=== PATIENT | female | born 1985 | race Caucasian/White ===

== ENCOUNTER → 2019-07-25 | Outpatient (CLI) | payer BC, SELFPAY | PROVIDERS: Family Provider Family Medicine; Visit Provider Nurse Practitioner | DX: F43.12 Post-traumatic stress disorder, chronic (principal); F41.1 Generalized anxiety disorder; F33.1 Major depressive disorder, recurrent, moderate ==

== ENCOUNTER 2019-08-15 14:35 | Emergency (ER) | payer BC, OTHER, SELFPAY ==
[2019-08-15] VITALS (8 sets, daily range): BP systolic 113–134; BP diastolic 72–86; PULSE 61–79; RESP 16–18; TEMP 36.4; O2SAT 95–100; BMI 30.4
[2019-08-15 14:58] LABS: Basophils % 0.5 %; Eosinophils # 0.4 10^3/uL (0.0-0.8); Eosinophils % 4.6 %; Hematocrit 45.9 % (37.0-47.0); Hemoglobin 15.5 g/dL (11.5-15.3); Lymphocytes # 2.2 10^3/uL (0.8-4.8); Lymphocytes % 25.4 %; Mean Corpuscular HGB Conc 33.8 g/dL (30.0-36.0); Mean Corpuscular Hemoglobin 32.2 pg (28.0-34.0); Mean Corpuscular Volume 95.2 fL (81-99); Mean Platelet Volume 9.3 fL (7.4-10.4); Monocytes # 0.7 10^3/uL (0.2-0.9); Monocytes % 8.2 %; Neutrophils # 5.3 10^3/uL (1.8-7.7); Neutrophils % 61.1 %; Nucleated Red Blood Cells % 0 %; Platelet Count 299 10^3/cmm (130-400); Red Blood Count 4.82 10^6/uL (4.1-5.3); Red Cell Distribution Width 12.1 % (12.1-15.1); White Blood Count 8.6 10^3/uL (4.0-10.0)
[2019-08-15 15:13] LABS: Alanine Aminotransferase 10 U/L (0-33); Albumin Level 4.3 g/dL (3.5-5.2); Alkaline Phosphatase 77 IU/L (35-105); Anion Gap 15.8 (5-19); Aspartate Amino Transferase 15 U/L (0-32); Blood Urea Nitrogen 9 mg/dL (6-20); Calcium 10.1 mg/Dl (8.6-10.0); Carbon Dioxide 27 mmol/L (22-29); Chloride 102 mmol/L (98-107); Glomerular Filtration Rate 71.3 mL/min (90-130); Glucose 107 mg/dL (74-109); Lipase 41 U/L (13-60); Potassium 3.8 mmol/L (3.5-5.1); Sodium 141 mmol/L (136-145); Total Bilirubin 0.6 mg/dL (0.15-1.2); Total Protein 8.3 g/dL (6.6-8.7)
--- NOTE | 2019-08-15 15:14 | ED_ITS ---
Entered by Ash Tamez, acting as scribe for Arnav Sharma DO Aug 15, 2019 14:35 HPI - Abdominal Pain General: Chief Complaint: Abdominal Pain Stated Complaint: abd pain Time Seen by Provider: 08/15/19 15:19 History of Present Illness: HPI narrative: 34 yo female presents with RLQ pain. Pt states that she has had some pain when urinating. Pt denies fever and vomiting. Associated Symptoms: Reports diarrhea and dysuria; Denies chills, coffee ground emesis, constipation, GI cramping, fever(s), heartburn, hematochezia, hematemesis, melena, nausea, syncope and vomiting Review of Systems Const: Denies: fever, chills, body aches, fatigue, malaise or night sweats Eyes: Denies: change in vision or blurry vision ENMT: Denies: throat pain, oral sores/lesions, dental pain, nasal discharge or nasal congestion Card: Denies: chest pain, palpitations, irregular heart rhythm, edema, syncope, shortness of breath on exertion, shortness of breath when lying down or leg pain with exertion Resp: Reports: non-productive cough; Denies: shortness of breath, productive cough or wheezing GI: Reports: diarrhea; Denies: abdominal pain, nausea, vomiting, vomiting blood, coffee grounds in vomit, difficulty swallowing, heartburn/indigestion, constipation, cramping, blood in stool or black tarry stool : Reports: painful urination Musc: Denies: neck pain, back pain, extremity pain, extremity swelling, joint pain or joint swelling Skin/Breast: Denies: rash, itching or redness Neuro: Denies: headache, numbness in extremities, weakness in extremities, changes in sensation, lack of coordination, difficulty walking, frequent falls, dizziness, vertigo or confusion Psych: Denies: anxiety, depression, loss of interest, visual hallucinations, auditory hallucinations, suicidal ideation or homicidal ideation Endo: Denies: excessive urination, excessive thirst, tired all the time or cold intolerance Carlin/Lymph: Denies: easy bruising, easy bleeding, petechiae, enlarged lymph nodes or tender lymph nodes PFSH ED PFSH: Statuses (acute, chronic, etc) shown below reflect problem list status as previously entered and may not be historically accurate Surgical History H/O: hysterectomy (Acute) Hx of tubal ligation (Acute) Social History Smoking and tobacco status: former smoker Physical Exam Const: COMMON NORMALS: average body habitus, oriented x3 and alert GENERAL APPEARANCE: cooperative, comfortable, well kempt and well developed NUTRITIONAL APPEARANCE: not obese ORIENTATION/CONSCIOUSNESS: Yes awake, Yes oriented to person and Yes oriented to place HENMT: COMMON NORMALS: normocephalic, head/scalp atraumatic, EAC's normal, TM's normal bilaterally, external nose normal, moist oral mucous membranes and oropharynx normal HEAD & SCALP: normocephalic and atraumatic NOSE: external nose normal EXTERNAL AUDITORY CANAL: EAC's normal TYMPANIC MEMBRANE: TM's normal bilaterally MOUTH: oral and palatal mucosa normal, lip normal and tongue normal THROAT: posterior oropharynx normal and tonsils normal Eye: COMMON NORMALS: PERRL, EOMs intact bilaterally, conjunctivae normal and no scleral icterus CONJUNCTIVA: Yes conjunctivae normal PUPIL: Yes PERRL Neck/C-Spine: COMMON NORMALS: full ROM, no lymphadenopathy, supple, no meningeal signs and thyroid normal THYROID: thyroid normal and asymmetrical Lymph: LYMPHATIC: no lymphadenopathy noted Resp: COMMON NORMALS: normal respiratory effort, no retractions, no use of accessory muscles and clear to auscultation bilaterally AUSCULTATION: clear to auscultation bilaterally Cardio: COMMON NORMALS: regular rate and regular rhythm RATE: regular rate RHYTHM: regular rhythm HEART SOUNDS: no murmurs GI: COMMON NORMALS: normal to inspection, nondistended, normoactive bowel sounds, soft to palpation and no hepatosplenomegaly PALPATION: Yes soft, Yes tender Details: RLQ and Yes no hepatosplenomegaly : COMMON NORMALS: Yes no CVA tenderness BLADDER/KIDNEY EXAM: Yes no CVA tenderness Back/Pelvis: COMMON NORMALS: no CVA tenderness LUMBAR SPINE/LOWER BACK: Yes normal to inspection Extremity: COMMON NORMALS: no clubbing, cyanosis or edema, no calf tenderness and no pedal edema Neuro: COMMON NORMALS: oriented x3 SENSORIUM/ORIENTATION: Yes alert, Yes oriented to person and Yes oriented to place MENINGEAL SIGNS: Yes no meningeal signs Psych: APPEARANCE: Yes well kempt Skin: COMMON NORMALS: no rashes or lesions noted and skin turgor normal GENERAL SKIN EXAM: no rashes or lesions noted and turgor normal Course Vital Signs: Vital signs: Vital Signs Temperature 97.5 F L 08/15/19 14:38 Pulse Rate 68 08/15/19 19:28 Respiratory Rate 18 08/15/19 19:28 Blood Pressure 134/79 08/15/19 19:28 Pulse Oximetry 98 08/15/19 19:28 MDM - Abdominal Pain Lab Data: Labs: Lab Results 08/15/19 08/15/19 08/15/19 Range/Units 14:53 14:53 15:16 WBC 8.6 (4.0-10.0) 10^3/ uL RBC 4.82 (4.1-5.3) 10^6/u L Hgb 15.5 H (11.5-15.3) g/dL Hct 45.9 (37.0-47.0) % MCV 95.2 (81-99) fL MCH 32.2 (28.0-34.0) pg MCHC 33.8 (30.0-36.0) g/dL RDW 12.1 (12.1-15.1) % Plt Count 299 (130-400) 10^3/c mm MPV 9.3 (7.4-10.4) fL Neut % (Auto) 61.1 % Lymph % (Auto) 25.4 % Johnson % (Auto) 8.2 % Eos % (Auto) 4.6 % Baso % (Auto) 0.5 % Neut # (Auto) 5.3 (1.8-7.7) 10^3/u L Lymph # (Auto) 2.2 (0.8-4.8) 10^3/u L Johnson # (Auto) 0.7 (0.2-0.9) 10^3/u L Eos # (Auto) 0.4 (0.0-0.8) 10^3/u L Baso # (Auto) 0.0 (0.0-0.1) 10^3/u L Nucleated RBC % (a uto) 0 % Nucleated RBCs # 0.0 /100WBC Sodium 141 (136-145) mmol/L Potassium 3.8 (3.5-5.1) mmol/L Chloride 102 (98-107) mmol/L Carbon Dioxide 27 (22-29) mmol/L Anion Gap 15.8 (5-19) BUN 9 (6-20) mg/dL Creatinine 0.9 (0.5-0.9) mg/dL GFR Calculation 71.3 L (90-130) mL/min Glucose 107 (74-109) mg/dL Calcium 10.1 H (8.6-10.0) mg/Dl Total Bilirubin 0.6 (0.15-1.2) mg/dL AST 15 (0-32) U/L ALT 10 (0-33) U/L Alkaline Phosphata se 77 (35-105) IU/L Total Protein 8.3 (6.6-8.7) g/dL Albumin 4.3 (3.5-5.2) g/dL Globulin 4.0 (1.3-4.6) g/dL Lipase 41 (13-60) U/L HCG, Qual Negative (Negative) Urine Color (Yellow) Urine Appearance (CLEAR) Urine pH (5-7) Ur Specific Gravit y (1.005-1.030) Urine Protein (Negative) Urine Glucose (UA) (Normal) Urine Ketones (Negative) Urine Occult Blood (Negative) Urine Nitrate (Negative) Urine Bilirubin (NEGATIVE) Urine Urobilinogen (Negative) mg/dL Ur Leukocyte Gilda ase (Negative) 08/15/19 Range/Units 15:16 WBC (4.0-10.0) 10^3/ uL RBC (4.1-5.3) 10^6/u L Hgb (11.5-15.3) g/dL Hct (37.0-47.0) % MCV (81-99) fL MCH (28.0-34.0) pg MCHC (30.0-36.0) g/dL RDW (12.1-15.1) % Plt Count (130-400) 10^3/c mm MPV (7.4-10.4) fL Neut % (Auto) % Lymph % (Auto) % Johnson % (Auto) % Eos % (Auto) % Baso % (Auto) % Neut # (Auto) (1.8-7.7) 10^3/u L Lymph # (Auto) (0.8-4.8) 10^3/u L Johnson # (Auto) (0.2-0.9) 10^3/u L Eos # (Auto) (0.0-0.8) 10^3/u L Baso # (Auto) (0.0-0.1) 10^3/u L Nucleated RBC % (a uto) % Nucleated RBCs # /100WBC Sodium (136-145) mmol/L Potassium (3.5-5.1) mmol/L Chloride (98-107) mmol/L Carbon Dioxide (22-29) mmol/L Anion Gap (5-19) BUN (6-20) mg/dL Creatinine (0.5-0.9) mg/dL GFR Calculation (90-130) mL/min Glucose (74-109) mg/dL Calcium (8.6-10.0) mg/Dl Total Bilirubin (0.15-1.2) mg/dL AST (0-32) U/L ALT (0-33) U/L Alkaline Phosphata se (35-105) IU/L Total Protein (6.6-8.7) g/dL Albumin (3.5-5.2) g/dL Globulin (1.3-4.6) g/dL Lipase (13-60) U/L HCG, Qual (Negative) Urine Color Yellow (Yellow) Urine Appearance Clear (CLEAR) Urine pH 7.0 (5-7) Ur Specific Gravit y 1.010 (1.005-1.030) Urine Protein Neg (Negative) Urine Glucose (UA) Norm (Normal) Urine Ketones Negative (Negative) Urine Occult Blood Neg (Negative) Urine Nitrate Negative (Negative) Urine Bilirubin Neg (NEGATIVE) Urine Urobilinogen Norm (Negative) mg/dL Ur Leukocyte Gilda ase Negative (Negative) Discharge Plan Discharge Patient Disposition: Home, Self-Care Clinical Impression: Ovarian cyst Condition: Stable Prescriptions: New ondansetron HCl 4 mg tablet 4 mg PO Q6H PRN (Reason: nausea and vomiting) Qty: 14 RF: 0 hydrocodone-acetaminophen 5-325 mg tablet 1 tab PO Q6H PRN (Reason: pain) Qty: 14 RF: 0 Referrals: Jacquie Negrete MD [Primary Care Provider] - Discharge Date/Time: 08/15/19 19:29 Coding Level of Care Code ED [employer] Manager for Chg Fwd Exam Problem Focused The documentation recorded by the Dashawn leon Kialy, accurately reflects the service I personally performed and the decisions made by Edith yarbrough Curtis L, DO Aug 15, 2019 14:35
[2019-08-15 15:29] LABS: Add Urine Microscopic? NO
--- NOTE | 2019-08-15 15:33 | US_ITS ---
WS: [id number] RIGHT UPPER QUADRANT ULTRASOUND HISTORY: RUQ abd pain COMPARISON: None available. Liver: 16.2 cm in length. Normal size and echogenicity with no intrahepatic dilatation. No mass. Gallbladder: Normally distended gallbladder with no stones or wall thickening. CBD: 3.4 mm Pancreas: Normal size and echogenicity. Right kidney: 10.2 cm in length. Normal echogenicity with no mass or hydronephrosis. Aorta and IVC: Unremarkable. No ascites. US/US gall bladder [id number] IMPRESSION: Normal RIGHT upper quadrant ultrasound.
[2019-08-15 15:38] LABS: Bilirubin Urine Neg (NEGATIVE); Blood Urine Neg (Negative); Glucose Urine UA Norm (Normal); HCG Qualitative Urine. Negative (Negative); Ketones Urine Negative (Negative); Leukocyte Esterase Urine Negative (Negative); Nitrate Urine Negative (Negative); Protein Urine Neg (Negative); Urine Appearance Clear (CLEAR); Urine Color Yellow (Yellow); Urobilinogen Urine Norm (Negative)
--- NOTE | 2019-08-15 16:39 | CTR_ITS ---
PROCEDURE INFORMATION: Exam: CT Abdomen And Pelvis With Contrast Exam date and time: 08/15/2019 5:33 PM Age: 34 years old Clinical indication: Abdominal pain; Localized; Right lower quadrant (rlq); Prior surgery; Surgery date: 6+ months; Additional info: Abd pain TECHNIQUE: Imaging protocol: Computed tomography of the abdomen and pelvis with intravenous contrast. Total DLP: 972.4 mGy-cm Radiation optimization: All CT scans at this facility use at least one of these dose optimization techniques: automated exposure control; mA and/or kV adjustment per patient size (includes targeted exams where dose is matched to clinical indication); or iterative reconstruction. Contrast material: OMNIPAQUE 300; Contrast volume: 95 ml; Contrast route: IV; COMPARISON: US [facility] Pelvic w TV 10/21/2012 11:02 AM FINDINGS: Liver: Normal. No mass. Gallbladder and bile ducts: Normal. No calcified stones. No ductal dilation. Pancreas: Normal. No ductal dilation. Spleen: Normal. No splenomegaly. Adrenals: Normal. No mass. Kidneys and ureters: No renal stones or hydronephrosis. No perinephric stranding. Stomach and bowel: No bowel obstruction or ileus. Appendix: The appendix is normal. Intraperitoneal space: Trace free fluid in the dependent pelvis. Vasculature: Unremarkable. No abdominal aortic aneurysm. Lymph nodes: Small reactive nodes in both inguinal regions. Bladder: Unremarkable as visualized. Reproductive: Scattered follicles in both ovaries. The uterus is surgically absent. Bones/joints: Unremarkable. No acute fracture. Soft tissues: 2 cm umbilical hernia consist of fatty tissue only. CT/CT abdomen pelvis w con* [id number] IMPRESSION: 1. Trace pelvic free fluid is most likely from a recently ruptured follicle. 2. Normal appendix. 3. No significant abdominal pelvic findings. Radiation Dose CTDIVOL = (mGy): DLP = 972.4 (mGy-cm)
[2019-08-15] MEDS: morphine 4 mg/mL SDV 1 mL IVP (16:56)
[2019-08-15] MEDS: ondansetron 2 mg/ML SDV 2 mL 4 MG IVP (16:57)
--- NOTE | 2019-08-15 18:00 | PC.NURSE ---
Pt returned from CT
[2019-08-15] MEDS: iohexol 300 mg/mL 100 mL Btl IV (18:15)
== END 2019-08-15 19:29 | disposition home or self-care (01) ==
PROVIDERS: Emergency Medicine; Emergency Provider Family Medicine; Family Provider Family Medicine; PCP Family Medicine
DX: N83.209 Unspecified ovarian cyst, unspecified side (principal); Z87.891 Personal history of nicotine dependence
CPT/HCPCS: 36415; 74177; 76705; 80053; 81003; 81025; 83690; 85025; 96374; 99282; A9270; J2270; J2405; Q9967

== ENCOUNTER 2019-09-02 22:01 | Emergency (ER) | payer BC, SELFPAY ==
[2019-09-02 22:03] VITALS: BP 141/91; PULSE 84; RESP 16; TEMP 36.6; O2SAT 98; BMI 30.5
[2019-09-02 22:42] LABS: Basophils # 0.1 10^3/uL (0.0-0.1); Basophils % 0.4 %; Eosinophils # 0.5 10^3/uL (0.0-0.8); Eosinophils % 4.3 %; Hematocrit 42.2 % (37.0-47.0); Hemoglobin 14.2 g/dL (11.5-15.3); Lymphocytes # 2.9 10^3/uL (0.8-4.8); Lymphocytes % 24.8 %; Mean Corpuscular HGB Conc 33.6 g/dL (30.0-36.0); Mean Corpuscular Hemoglobin 32.3 pg (28.0-34.0); Mean Corpuscular Volume 95.9 fL (81-99); Mean Platelet Volume 9.6 fL (7.4-10.4); Monocytes % 8.7 %; Neutrophils # 7.1 10^3/uL (1.8-7.7); Neutrophils % 61.5 %; Nucleated Red Blood Cells % 0 %; Platelet Count 271 10^3/cmm (130-400); White Blood Count 11.5 10^3/uL (4.0-10.0)
[2019-09-02 22:54] LABS: HCG, Serum Qual Negative (Negative)
[2019-09-02 23:03] LABS: Alanine Aminotransferase 10 U/L (0-33); Albumin Level 4.1 g/dL (3.5-5.2); Alkaline Phosphatase 65 IU/L (35-105); Anion Gap 15.8 (5-19); Aspartate Amino Transferase 15 U/L (0-32); Blood Urea Nitrogen 13 mg/dL (6-20); Calcium 9.8 mg/dL (8.5-10.5); Carbon Dioxide 22 mmol/L (22-29); Chloride 99 mmol/L (98-107); Creatinine Clr Calc Pharmacy 99.6355; Globulin 3.2 g/dL (1.3-4.6); Glomerular Filtration Rate 71.3 mL/min (90-130); Glucose 108 mg/dL (65-115); Potassium 3.8 mmol/L (3.5-5.1); Sodium 133 mmol/L (136-145); Total Bilirubin 0.4 mg/dL (0.15-1.2); Total Protein 7.3 g/dL (6.6-8.7)
[2019-09-02 23:34] LABS: Add Urine Microscopic? NO
[2019-09-02 23:36] LABS: Bilirubin Urine Neg (NEGATIVE); Blood Urine Neg (Negative); Glucose Urine UA Norm (Normal); Ketones Urine Negative (Negative); Leukocyte Esterase Urine Negative (Negative); Nitrate Urine Negative (Negative); Protein Urine Neg (Negative); Urine Appearance Clear (CLEAR); Urine Color Yellow (Yellow); Urobilinogen Urine Norm (Negative); pH Urine 7 (5-7)
--- NOTE | 2019-09-03 00:08 | W.ED.FEMALGU ---
HPI - Female Genitourinary General: Chief complaint: Abdominal Pain Stated complaint: low l abd pain Time Seen by Provider: 09/02/19 23:02 Source: patient Mode of arrival: ambulatory Limitations: no limitations History of Present Illness: HPI Narrative: Patient is a 34-year-old female who presents to ED today with complaints of left lower pelvic pain; patient was apparently recently diagnosed with an ovarian ruptured cyst; patient states she never stopped having pain but reports very sharp pain beginning yesterday; she reports no changes in urinary or bowel movement habits. She has not been running fevers or chills. Her LMP was 7 years ago as she has a previous hysterectomy due to endometriosis; she denies vaginal odor, discharge, concern for STDs Associated symptoms: Reports nausea; Deny abdominal pain or vaginal discharge Review of Systems Const: Denies: fever or chills GI: Reports: nausea; Denies: abdominal pain, vomiting, vomiting blood, difficulty swallowing, heartburn/indigestion, constipation, painful bowel movements, change in stool character or white/light colored stool : Reports: pelvic pain; Denies: flank pain, difficulty urinating, painful urination, urinary frequency, urinary urgency, urinary hesitancy, urinary incontinence, blood in urine, vaginal odor, vaginal bleeding or vaginal discharge Musc: Denies: neck pain, back pain or joint pain Skin/Breast: Denies: rash PFSH ED PFSH: Statuses (acute, chronic, etc) shown below reflect problem list status as previously entered and may not be historically accurate Social History Smoking and tobacco status: never smoked Physical Exam Const: COMMON NORMALS: no apparent distress, oriented x3, no limitations and alert Resp: COMMON NORMALS: normal respiratory effort and clear to auscultation bilaterally AUSCULTATION: clear to auscultation bilaterally Cardio: COMMON NORMALS: regular rate and regular rhythm RATE: regular rate RHYTHM: regular rhythm GI: COMMON NORMALS: normal to inspection, nondistended, normoactive bowel sounds, soft to palpation, no hepatosplenomegaly and no masses PALPATION: Yes soft, Yes tender (L pelvis) and Yes no hepatosplenomegaly : COMMON NORMALS: Yes no CVA tenderness BLADDER/KIDNEY EXAM: Yes no CVA tenderness Back/Pelvis: COMMON NORMALS: no CVA tenderness and thoracic and lumbar spine normal to inspection Neuro: COMMON NORMALS: oriented x3 SENSORIUM/ORIENTATION: Yes alert Skin: COMMON NORMALS: no rashes or lesions noted GENERAL SKIN EXAM: no rashes or lesions noted Course Vital Signs: Vital signs: Vital Signs Temperature 97.8 F 09/02/19 22:03 Pulse Rate 84 09/02/19 22:03 Respiratory Rate 16 09/02/19 22:03 Blood Pressure 141/91 09/02/19 22:03 Pulse Oximetry 98 09/02/19 22:03 MDM - Female Lab Data: Labs: Lab Results 09/02/19 09/02/19 09/02/19 Range/Units 22:36 22:36 22:36 WBC 11.5 H (4.0-10.0) 10^3/ uL RBC 4.40 (4.1-5.3) 10^6/u L Hgb 14.2 (11.5-15.3) g/dL Hct 42.2 (37.0-47.0) % MCV 95.9 (81-99) fL MCH 32.3 (28.0-34.0) pg MCHC 33.6 (30.0-36.0) g/dL RDW 12.0 L (12.1-15.1) % Plt Count 271 (130-400) 10^3/c mm MPV 9.6 (7.4-10.4) fL Neut % (Auto) 61.5 % Lymph % (Auto) 24.8 % Falls % (Auto) 8.7 % Eos % (Auto) 4.3 % Baso % (Auto) 0.4 % Neut # (Auto) 7.1 (1.8-7.7) 10^3/u L Lymph # (Auto) 2.9 (0.8-4.8) 10^3/u L Falls # (Auto) 1.0 H (0.2-0.9) 10^3/u L Eos # (Auto) 0.5 (0.0-0.8) 10^3/u L Baso # (Auto) 0.1 (0.0-0.1) 10^3/u L Nucleated RBC % (a uto) 0 % Nucleated RBCs # 0.0 /100WBC Sodium 133 L (136-145) mmol/L Potassium 3.8 (3.5-5.1) mmol/L Chloride 99 (98-107) mmol/L Carbon Dioxide 22 (22-29) mmol/L Anion Gap 15.8 (5-19) BUN 13 (6-20) mg/dL Creatinine 0.9 (0.5-0.9) mg/dL GFR Calculation 71.3 L (90-130) mL/min Glucose 108 (65-115) mg/dL Calcium 9.8 (8.5-10.5) mg/dL Total Bilirubin 0.4 (0.15-1.2) mg/dL AST 15 (0-32) U/L ALT 10 (0-33) U/L Alkaline Phosphata se 65 (35-105) IU/L Total Protein 7.3 (6.6-8.7) g/dL Albumin 4.1 (3.5-5.2) g/dL Globulin 3.2 (1.3-4.6) g/dL HCG, Qual Negative (Negative) Urine Color (Yellow) Urine Appearance (CLEAR) Urine pH (5-7) Ur Specific Gravit y (1.005-1.030) Urine Protein (Negative) Urine Glucose (UA) (Normal) Urine Ketones (Negative) Urine Occult Blood (Negative) Urine Nitrate (Negative) Urine Bilirubin (NEGATIVE) Urine Urobilinogen (Negative) mg/dL Ur Leukocyte Gilda ase (Negative) 09/02/19 Range/Units 23:30 WBC (4.0-10.0) 10^3/ uL RBC (4.1-5.3) 10^6/u L Hgb (11.5-15.3) g/dL Hct (37.0-47.0) % MCV (81-99) fL MCH (28.0-34.0) pg MCHC (30.0-36.0) g/dL RDW (12.1-15.1) % Plt Count (130-400) 10^3/c mm MPV (7.4-10.4) fL Neut % (Auto) % Lymph % (Auto) % Falls % (Auto) % Eos % (Auto) % Baso % (Auto) % Neut # (Auto) (1.8-7.7) 10^3/u L Lymph # (Auto) (0.8-4.8) 10^3/u L Falls # (Auto) (0.2-0.9) 10^3/u L Eos # (Auto) (0.0-0.8) 10^3/u L Baso # (Auto) (0.0-0.1) 10^3/u L Nucleated RBC % (a uto) % Nucleated RBCs # /100WBC Sodium (136-145) mmol/L Potassium (3.5-5.1) mmol/L Chloride (98-107) mmol/L Carbon Dioxide (22-29) mmol/L Anion Gap (5-19) BUN (6-20) mg/dL Creatinine (0.5-0.9) mg/dL GFR Calculation (90-130) mL/min Glucose (65-115) mg/dL Calcium (8.5-10.5) mg/dL Total Bilirubin (0.15-1.2) mg/dL AST (0-32) U/L ALT (0-33) U/L Alkaline Phosphata se (35-105) IU/L Total Protein (6.6-8.7) g/dL Albumin (3.5-5.2) g/dL Globulin (1.3-4.6) g/dL HCG, Qual (Negative) Urine Color Yellow (Yellow) Urine Appearance Clear (CLEAR) Urine pH 7 (5-7) Ur Specific Gravit y 1.010 (1.005-1.030) Urine Protein Neg (Negative) Urine Glucose (UA) Norm (Normal) Urine Ketones Negative (Negative) Urine Occult Blood Neg (Negative) Urine Nitrate Negative (Negative) Urine Bilirubin Neg (NEGATIVE) Urine Urobilinogen Norm (Negative) mg/dL Ur Leukocyte Gilda ase Negative (Negative) Imaging Data: US: Radiologist's impression: L hemorrhagic cyst; no active bleeding; small amount of free fluid in pelvis per Joselo D Discharge Plan Discharge Patient Disposition: Home, Self-Care Clinical Impression: Hemorrhagic cyst of left ovary Condition: Stable Prescriptions: New hydrocodone-acetaminophen 5-325 mg tablet 1 tab PO Q6H PRN (Reason: pain) Qty: 14 RF: 0 No Action ondansetron HCl 4 mg tablet 4 mg PO Q6H PRN (Reason: nausea and vomiting) Qty: 14 RF: 0 Discharge Orders: Discharge Order (Routine); Ordered 09/03/19 Ordered By: Carolina Corona Referrals: Jacquie Negrete MD [Primary Care Provider] - Patient Instructions: Ovarian Cyst (ED) Activity Restrictions/Additional Instructions: [facility] as scheduled. Coding Level of Care Code ED Collections Attorney for Chg Fwd Exam Problem Focused
[2019-09-03] MEDS: HYDROcodone-acetaminophen 5-325 mg Tablet 2 TAB PO (01:16)
[2019-09-03 01:19] VITALS: BP 122/86; PULSE 72; RESP 16; O2SAT 98
--- NOTE | 2019-09-03 23:36 | US_ITS ---
WS: [id number] PELVIC ULTRASOUND HISTORY: 34 years old with L ovarian cyst/pelvic pain COMPARISON: CT pelvis 08/15/2019 TECHNIQUE: Grayscale and Doppler transabdominal and transvaginal pelvic ultrasound. FINDINGS: Post hysterectomy changes reidentified. No pelvic free fluid or fluid collection. Right ovary is not enlarged left ovary contains a complex cystic structure measuring 2.1 x 2.3 cm. Remainder the left ov mike parenchyma echogenicity is unremarkable. Left ovary duplex Doppler waveform appears within normal limits. Right ovary duplex Doppler waveforms not obtained. right ovary measures 2.2 cm x 0.6 cm x 9 cm, and left ovary measures 2.7 cm x 3.3 cm x 3.6 cm. US/US pelvic with transvaginal IMPRESSION: 1. Post hysterectomy changes. 2. Left ovarian probable hemorrhagic cyst measuring 2.3 cm. Recommend follow-up pelvic ultrasound in 6-8 weeks to confirm resolution. 3. No evidence of left ovarian torsion. 4. Unremarkable right ovary and no evidence of pelvic free fluid or fluid colle ction.
--- NOTE | 2019-09-05 12:09 | DCPLANNER ---
programming manager had message to schedule a follow up appointment for patient with [facility]. programming manager called the [facility], spoke with Payam, gave clinic patients information. programming manager was told that patients information would be printed and given to Sadia for review. Clinic will call field nurse case manager and clinic with appointment information.
--- NOTE | 2019-09-08 10:59 | DCPLANNER ---
Patient has an appointment scheduled for Thursday, September 19, 2019 at 2:[address] Pal. Clinic will contact patient with appointment information.
--- NOTE | 2019-09-27 14:43 | DCPLANNER ---
Patient did attend appointment scheduled for 09.19.19 with [facility].
== END 2019-09-03 01:19 | disposition home or self-care (01) ==
PROVIDERS: Emergency Provider Physician Assistant; Family Provider Family Medicine; PCP Family Medicine
DX: N83.202 Unspecified ovarian cyst, left side (principal)
CPT/HCPCS: 36415; 76830; 76856; 80053; 81003; 84703; 85025; 99282; 99283

== ENCOUNTER → 2019-09-19 15:15 | Outpatient (BNVA) | payer BC, OTHER, SELFPAY | PROVIDERS: Family Provider Family Medicine; PCP Family Medicine; Referring Provider Physician Assistant; Visit Provider Obstetrics & Gynecology Female Pelvic Medicine and Reconstructive Surgery | DX: R10.2 Pelvic and perineal pain (principal) | CPT/HCPCS: 87491; 87591 ==

== ENCOUNTER → 2019-10-19 16:07 | Outpatient (BNVA) | payer BC, OTHER, SELFPAY | PROVIDERS: Family Provider Family Medicine; PCP Family Medicine; Visit Provider Nurse Practitioner Family | DX: R05 Cough (principal); D72.829 Elevated white blood cell count, unspecified | CPT/HCPCS: 71046; 80053; 81000; 81025; 85025; 87400 ==

== ENCOUNTER → 2019-10-20 09:59 | Outpatient (BNVA) | payer BC, SELFPAY | PROVIDERS: Family Provider Family Medicine; PCP Family Medicine; Visit Provider Nurse Practitioner | DX: F43.12 Post-traumatic stress disorder, chronic (principal); F41.1 Generalized anxiety disorder; F33.1 Major depressive disorder, recurrent, moderate | CPT/HCPCS: 99214 ==

== ENCOUNTER → 2020-03-23 11:00 | Outpatient (BNVA) | payer BC, SELFPAY | PROVIDERS: Family Provider Family Medicine; PCP Family Medicine; Visit Provider Nurse Practitioner Family | DX: Z11.59 Encounter for screening for other viral diseases (principal) | CPT/HCPCS: 87635 ==

== ENCOUNTER → 2020-08-01 11:37 | Outpatient (BNVA) | payer BC, OTHER, SELFPAY | PROVIDERS: Family Provider Family Medicine; PCP Family Medicine; Visit Provider Family Medicine | DX: R50.9 Fever, unspecified (principal); J10.1 Influenza due to other identified influenza virus with other respiratory manifestations | CPT/HCPCS: 87400; 87635 ==

== ENCOUNTER → 2020-10-10 09:55 | Outpatient (BNVA) | payer BC, SELFPAY | PROVIDERS: Family Provider Family Medicine; PCP Family Medicine; Visit Provider Obstetrics & Gynecology | DX: R10.2 Pelvic and perineal pain (principal); Z20.822 Contact with and (suspected) exposure to COVID-19 | CPT/HCPCS: 87635 ==

== ENCOUNTER 2020-10-16 05:38 | Day surgery (SDC) | payer BC, OTHER, SELFPAY ==
[2020-10-15 13:17] VITALS: BMI 27.2
[2020-10-16] VITALS (10 sets, daily range): BP systolic 119–140; BP diastolic 76–93; PULSE 57–93; RESP 14–24; TEMP 36.4–37.4; O2SAT 95–100
[2020-10-16] MEDS: sodium chloride 0.9% 1,000 ML 30 ML IV (06:27)
[2020-10-16] MEDS: gabapentin 300 mg Capsule PO (06:33)
[2020-10-16] MEDS: acetaminophen 1,000 MG/100 ML PIGGYBACK 400 MG IV (06:34)
[2020-10-16] MEDS: ketorolac 30 mg/mL INJ IVP (06:34)
--- NOTE | 2020-10-16 06:43 | P.ANESASSM_ITS ---
Pre-Anesthetic Assessment Pre-Anesthetic Assessment: Height/Weight: Height 1.7 m Weight 78.925 kg Temp Pulse Resp BP Pulse Ox 99.3 F 60 18 119/76 100 10/16/20 06:05 10/16/20 06:05 10/16/20 06:05 10/16/20 06:05 10/16/20 06:05 Preop Diagnosis: Chronic pelvic pain Proposed Procedure: Operation Date: 10/16/20 07:00 Proposed Procedures p Lap Fulg,Removal of Tubes Sterilization 47768 R10.2(Not Applicable) - Adelso Ruano MD Familial anesthetic complications: None Was Beta Poonam taken within 24 hours: N/A Was Clonidine taken within 24 hours: N/A Last intake: Intake Last Liquid Date 10/15/20 Last Solid Date 10/15/20 Last Solid Time 22:30 Social: Social History: No alcohol and No tobacco Exam: Pre-Anes Outpt Exam: alert, oriented x 3, clear to auscultation bilaterally and regular rate & rhythm Airway: Cervical ROM: WNL MP: 1 Dentition: Chipped (multiple) Anesthetic Plan: ASA status: 1 Anesthesia: General Risk of > 500 ml blood loss (7ml/kg in children): No Meds/Allergies Current Medications: Current Medications Generic Name Dose Route Start Last Admin Trade Name Freq PRN Reason Stop Dose Admin Sodium Chloride 1,000 mls @ 30 ml s/hr 10/16/20 06:00 10/16/20 06:27 Sodium Chloride 0.9% IV 10/17/20 05:59 30 mls/hr .Q24H TR Administration PFSH Anesthesia PFSH: Medical History Generalized anxiety disorder Major depressive disorder, recurrent, moderate Post-traumatic stress disorder, chronic Surgical History H/O: hysterectomy (07/05/13) TVH, Rosanna urethral plication. [place] [facility] [place] Ovaries spared. History of dilation and curettage (08/17/11) Treatment of miscarriage. [place]. Ru[place] [facility] [place] Hx of tubal ligation (08/26/12) tubal ligation. Dr. Yousif at [facility] [place]. Status post left foot surgery (~02/2009) Reconstruction from an accident/fracture Family History Mother Diabetes Heart disease Stroke Hypertension Hyperlipidemia Family/Other Heart disease Maternal aunt Stroke Maternal and paternal aunt Breast cancer Maternal and paternal aunts and uncles. Diagnosed in 40s Ovarian cancer, Onset Age: 52 Maternal aunt Uterine cancer maternal aunt Colon cancer maternal uncle, age at diagnosis unknown Cancer Maternal and paternal uncle--brain cancer Father Hypertension Heart disease Hyperlipidemia Other Thyroid condition Social History Smoking and tobacco status: never smoked Alcohol intake: current Alcohol intake frequency: holidays/special occasions only Substance/Drug Use: never Data Anesthesia Cardiac Studies: No Data to Display
[2020-10-16 06:52] LABS: Basophils # 0.1 10^3/uL (0.0-0.1); Basophils % 0.5 %; Eosinophils # 0.5 10^3/uL (0.0-0.8); Eosinophils % 4.6 %; Hematocrit 45.2 % (37.0-47.0); Hemoglobin 15.1 g/dL (11.5-15.3); Lymphocytes # 2.8 10^3/uL (0.8-4.8); Lymphocytes % 25.3 %; Mean Corpuscular HGB Conc 33.4 g/dL (30.0-36.0); Mean Corpuscular Hemoglobin 31.3 pg (28.0-34.0); Mean Corpuscular Volume 93.6 fL (81-99); Mean Platelet Volume 9.9 fL (7.4-10.4); Monocytes # 0.9 10^3/uL (0.2-0.9); Monocytes % 8.5 %; Neutrophils # 6.64 10^3/uL (1.8-7.7); Neutrophils % 60.8 %; Nucleated Red Blood Cells % 0 %; Platelet Count 277 10^3/cmm (130-400); Red Blood Count 4.83 10^6/uL (4.1-5.3); White Blood Count 10.9 10^3/uL (4.0-10.0)
--- NOTE | 2020-10-16 07:08 | W.PM.OPSUD ---
Surgery/Procedure H&P Update DATE OF PROCEDURE: October 16, 2020 DATE H&P PERFORMED: 10/08/20 H&P UPDATE INFORMATION: I have reviewed H&P completed within last 30 days, I have examined patient prior to procedure, No changes to prior documentation and H&P is in [facility] EMR on date indicated PREOP DIAGNOSIS: Chronic pelvic pain PLANNED PROCEDURE: Operation Date: 10/16/20 07:00 Proposed Procedures p Lap Fulg,Removal of Tubes Sterilization 00759 R10.2(Not Applicable) - Adelso Ruano MD
--- NOTE | 2020-10-16 07:44 | SUR.PREOP ---
0700 pt is refusing to remove piercings located in the upper lip, nasal septum and bilateral nipples. She was counseled about the risk for foster during surgery with the use of cautery, injury to piercing sites and loss of jewelry by this nurse, Dr. Ruano and the anesthesia provider and is still refusing to remove aforementioned piercings. Pt was asked to sign an addendum to the consent form stating her understanding of the risks explained to her and she agreed. Addendum was initialed by all mentioned above.
--- NOTE | 2020-10-16 08:39 | SUR.PHASEI ---
0839 oral airway removed at this time. spo2 100% on simple mask at 10L.
--- NOTE | 2020-10-16 08:40 | SUR.PHASEI ---
0830 patient to pacu from or at this time. oral airway in place with simple mask at 10l. rr even and unlabored. pwd. 3 incisions to abdomen, closed with dermabond. clean, dry and intact.
--- NOTE | 2020-10-16 08:52 | P.OP_ITS ---
Operative Report Date of procedure: October 16, 2020 Pre-op Diagnosis: Chronic pelvic pain Post-op Diagnosis: Chronic pelvic pain Procedure Done: Laparoscopic bilateral salpingo-oophorectomy Specimens removed/disposition: Bilateral tubes and ovaries Surgeon: Adelso Ruano Informatics Educator: None Anesthesia: General Estimated blood loss (mL): 20 IV fluids (mL): 1,200 Urine output (mL): 250 Complications: None Findings: Cyst of the left ovary noted. Adhesions of the left ovary to the left anterior pelvis. No endometriosis noted. Brief History: Patient is a 35-year-old female 10, para 4-0-6-4 who is status post hysterectomy in 2012. She presented to the office and August 2020 complaining of lower abdominal pain that is present mainly in the left pelvic region. She has had this for greater than 1 year. It starts as an ache that slowly worsens until it becomes sharp and severe and will double her over at times. It is almost always located in the left pelvic area but will sometimes progressed to the right side. It typically lasts for 1 to 2 weeks before it goes away on its own. She denies any pattern in regards to the timing of the pain. She denied any associated pain with bowel movements or urination. She believes she had bee n previously diagnosed with endometriosis and as a result once her ovaries removed. Other potential causes for the pain were discussed. Discussed with her that removal of the ovaries may or may not have any effect on her pain at all. Hormonal replacement after removal of the ovaries was discussed. Questions were answered. Patient still wished to proceed with removal of both of her ovaries. Procedure: The patient was taken to the operating room where general anesthesia was obtained. She was prepped and draped in the usual sterile fashion in the dorsal supine position. Sequential compression boots were placed prior to starting the case. Nieves catheter was inserted. The infraumbilical region was injected with 2% lidocaine with epinephrine. Skin incision was made with a knife in the lower edge of the navel and a size 10 trocar and sheath were inserted under direct visualization using an Optiview type technique. Trocar was removed and replaced with just the laparoscope confirming intra-abdominal placement. The anterior abdominal wall was inspected and noted to be free of adhesions. In the right and left lower quadrants later al to the inferior epigastric vessels, the skin was injected with 2% lidocaine with epinephrine. Skin incision was made with the knife and a 5 mm trocar and sheath were inserted under direct visualization at each site. The pelvis was thoroughly inspected. The right tube and ovary were normal in appearance. The left ovary was enlarged with a cyst present. It was adherent to the left anterior pelvis. No bowel adhesions or signs of endometriosis were noted. Starting on the left side after identification of the ureter, the left infundibulopelvic ligament was sealed and cut using Voyant sealing device. The dissection was carried along the lateral aspect of the ovary and tube until the ovary and tube were completely freed from the pelvic sidewall. Care was taken not to damage underlying structures in the process. On the right side, using the Voyant sealing device, the right infundibulopelvic ligament was sealed and cut and the dissection carried along the mesovarium and mesosalpinx until the ovary and tube were completely excised. The ovaries were placed in laparoscopic pouch and brought back out through the umbilical incision. Pelvis was thoroughly irrigated and areas of dissection were then inspected and noted to be hemostatic. The abdomen was deflated and the ports removed. The 5 mm sites were closed with single stitches of 4-0 Vicryl suture. The fascia at the umbilical site was closed with interrupted stitches of 0 Vicryl suture. Skin was reapproximated with 4-0 Vicryl suture in a subcuticular fashion. Dermabond was applied to the incision sites. Patient tolerated the procedures well. Sponge and needle counts were correct. Nieves catheter was removed at the end of the case. DRAINS: None POSTOPERATIVE STATUS: The patient was transferred to the recovery room in satisfactory condition. DISPOSITION: Patient was to be discharged home when criteria was met. FOLLOWUP APPOINTMENT: Patient was to followup in my office on on 11/01/2020. PRESCRIPTIONS: She received prescriptions for: [place] 5/325, 1 to 2 tablets every 6 hours as needed for pain, #28, 0 refills
--- NOTE | 2020-10-16 09:06 | SUR.PHASEI ---
0903 patient to ops at this time. no distress. 3 incisions, to abdomen, cdi.
--- NOTE | 2020-10-16 12:08 | ANE.PACU2 ---
Inpatient post-anesthesia follow up: Airway intact: Yes Vital signs: Temperature 98 F Pulse Rate 85 Respiratory Rate 16 Blood Pressure 124/86 Pulse Oximetry 97 Oxygen Delivery Me thod Room Air Oxygen Flow Rate 10 Fraction of Inspir ed Oxygen Hydration adequate: Yes Nausea and vomiting: No Pain level: 2 Mental status: Baseline
== END 2020-10-16 09:50 | disposition home or self-care (01) ==
PROVIDERS: PCP Family Medicine; Visit Provider Obstetrics & Gynecology
PROC: (CPT 58661; principal; 2020-10-16 07:00)
DX: R10.2 Pelvic and perineal pain (principal); G89.29 Other chronic pain
CPT/HCPCS: 58661; 36415; 85025; 86850; 86900; 88305; 96365; 96374; J1100; J1200; J1885; J2250; J2405; J2704; J2710; J3010; J3490; J7030

== ENCOUNTER → 2020-11-09 11:19 | Outpatient (BNVA) | payer BC, SELFPAY | PROVIDERS: PCP Family Medicine; Visit Provider Nurse Practitioner | DX: F33.1 Major depressive disorder, recurrent, moderate (principal); F41.1 Generalized anxiety disorder; F43.12 Post-traumatic stress disorder, chronic; F12.20 Cannabis dependence, uncomplicated | CPT/HCPCS: 99215 ==

== ENCOUNTER → 2020-12-05 09:17 | Outpatient (BNVA) | payer BC, OTHER, SELFPAY | PROVIDERS: PCP Family Medicine; Visit Provider Nurse Practitioner | DX: F33.1 Major depressive disorder, recurrent, moderate (principal); F41.1 Generalized anxiety disorder; F43.12 Post-traumatic stress disorder, chronic; F12.20 Cannabis dependence, uncomplicated | CPT/HCPCS: 99214 ==

== ENCOUNTER → 2020-12-25 15:19 | Outpatient (BNVA) | payer OTHER, SELFPAY | PROVIDERS: PCP Family Medicine; Visit Provider Nurse Practitioner Family | DX: M79.671 Pain in right foot (principal) | CPT/HCPCS: 73630 ==

== ENCOUNTER → 2021-02-13 12:46 | Outpatient (BNVA) | payer OTHER, SELFPAY | PROVIDERS: PCP Family Medicine; Visit Provider Specialist | DX: G43.709 Chronic migraine without aura, not intractable, without status migrainosus (principal); F32.9 Major depressive disorder, single episode, unspecified; F43.10 Post-traumatic stress disorder, unspecified; Z82.41 Family history of sudden cardiac death | CPT/HCPCS: 99204 ==

== ENCOUNTER 2021-02-28 16:00 | Outpatient (CLI) | payer OTHER, SELFPAY ==
--- NOTE | 2021-02-28 16:00 | MR_ITS ---
WS: [id number] MRI BRAIN WITHOUT CONTRAST HISTORY: G43.909 - Migraine, unspecified, not intractable, increasing in severity and frequency. COMPARISON: None available. TECHNIQUE: Diffusion imaging, multiplanar T1, T2 and FLAIR imaging obtained. No evidence for acute infarct or hemorrhage. Soto-white matter differentiation is normal. No remote or acute infarcts are volume loss. Ventricles and extra-axial spaces are normal. No inferior displacement of cerebellar tonsils. The sella turcica and pituitary gland are unremarkabl e. Dural venous sinuses and north fork of Oscar demonstrate no abnormality on this unenhanced studies. Paranasal sinuses: Clear. Mastoid air cells: Normal. Calvarium and scalp: Intact. MR/MR head wo con* [id number] IMPRESSION: 1. Unremarkable noncontrast MRI brain. 2. No signal abnormalities.
== END 2021-02-28 16:01 | disposition home or self-care (01) ==
LOC: RADSHAW 16:05
PROVIDERS: PCP Family Medicine; Visit Provider Specialist
DX: G43.909 Migraine, unspecified, not intractable, without status migrainosus (principal); R55 Syncope and collapse; R56.9 Unspecified convulsions
CPT/HCPCS: 70551; 95816

== ENCOUNTER → 2021-06-18 13:52 | Outpatient (BNVA) | payer OTHER, SELFPAY | PROVIDERS: PCP Family Medicine; Visit Provider Specialist | DX: G43.711 Chronic migraine without aura, intractable, with status migrainosus (principal); R55 Syncope and collapse; Z82.49 Family history of ischemic heart disease and other diseases of the circulatory system | CPT/HCPCS: 99214; 99215 ==

== ENCOUNTER → 2021-07-01 13:45 | Outpatient (BNVA) | payer OTHER, SELFPAY | PROVIDERS: PCP Family Medicine; Referring Provider Specialist; Visit Provider Specialist | DX: R55 Syncope and collapse (principal) | CPT/HCPCS: 95816 ==

== ENCOUNTER 2022-05-27 13:05 | Inpatient (IN) | payer MEDICAID, SELFPAY ==
[2022-05-27 13:07] VITALS: BP 149/91; PULSE 64; RESP 16; TEMP 36.4; O2SAT 99; BMI 31.4
[2022-05-27 14:04] LABS: Add Urine Microscopic? NO; Charge for UA Resulting for Rev
[2022-05-27 14:09] LABS: Urine Appearance Clear (CLEAR); Urine Color Yellow (Yellow)
[2022-05-27 14:10] LABS: Basophils % 0.6 %; Eosinophils # 0.2 10^3/uL (0.0-0.8); Eosinophils % 2.8 %; Hematocrit 43.8 % (37.0-47.0); Hemoglobin 14.3 g/dL (11.5-15.3); Lymphocytes # 2.2 10^3/uL (0.8-4.8); Lymphocytes % 32.4 %; Mean Corpuscular HGB Conc 32.6 g/dL (30.0-36.0); Mean Corpuscular Hemoglobin 30.9 pg (28.0-34.0); Mean Corpuscular Volume 94.6 fl (81-99); Mean Platelet Volume 9.7 fL (7.4-10.4); Monocytes # 0.5 10^3/uL (0.2-0.9); Monocytes % 7.9 %; Neutrophils # 3.74 10^3/uL (1.8-7.7); Nucleated Red Blood Cells % 0 %; Platelet Count 240 10^3/cmm (130-400); Red Blood Count 4.63 10^6/uL (4.1-5.3); Red Cell Distribution Width 11.9 % (12.1-15.1); White Blood Count 6.7 10^3/uL (4.0-10.0)
[2022-05-27 14:10] LABS: Bilirubin Urine Neg (Negative); Blood Urine Neg (Negative); Glucose Urine UA Norm (Normal); Ketones Urine Negative (Negative); Leukocyte Esterase Urine Negative (Negative); Nitrate Urine Negative (Negative); Protein Urine Neg (Negative); Urobilinogen Urine Norm (Negative); pH Urine 6 (5-7)
[2022-05-27 14:38] LABS: Alanine Aminotransferase 8 U/L (0-33); Albumin Level 4.3 g/dL (3.5-5.2); Alkaline Phosphatase 89 U/L (35-105); Anion Gap 14.7 (5-19); Aspartate Amino Transferase 13 U/L (0-32); Blood Urea Nitrogen 11 mg/dL (6-20); Calcium 9.9 mg/dL (8.5-10.5); Carbon Dioxide 25 mmol/L (22-29); Chloride 105 mmol/L (98-107); Globulin 2.7 g/dL (1.3-4.6); Glomerular Filtration Rate 80.3 mL/min (90-130); Glucose 94 mg/dL (65-115); Osmolality Calculated 291 mOsm/kg (285-295); Potassium 3.7 mmol/L (3.5-5.1); Sodium 141 mmol/L (136-145); Total Bilirubin 0.3 mg/dL (0.15-1.2)
[2022-05-27 14:41] LABS: Acetaminophen < 5.0 ug/mL (10-30); Alcohol Level < 10 mg/dL (0-10); Salicylate < 0.3 mg/dL (3-10)
--- NOTE | 2022-05-27 14:51 | ED.C_ITS ---
HPI - Psych General: Chief Complaint: Psychiatric Symptoms Stated Complaint: AMS, paranoia Time Seen by Provider: 05/27/22 13:29 History of Present Illness: 37-year-old female presents to the emergency room with acute psychosis and paranoia. Patient admits she has been having thoughts of self-harm random thoughts of harming others including 1 time where she was driving home and thought about throwing her child out of the vehicle while it was moving. There was another time she related where she was driving back from a nearby town on the highway and head lifted her child and it seemed to her she did not who was or why they were in the car. She states after a bit she recalled that it was her child. She denies any overt actions to harm herself or anyone else no specific suicidal ideation. She does states she has had various hallucinations audio and visual. She is on hydroxyzine and fluoxetine no previous admissions. Onset (ago): day(s) Duration: intermittent and changing over time Relieving factors: none Exacerbating factors: none Associated psychiatric symptoms: none Associated symptoms: Reports auditory hallucinations and visual hallucinations Treatments prior to arrival: none Review of Systems Const: Denies: fever(s), chills, body aches, change in appetite, fatigue or malaise ENMT: Denies: throat pain, ear or mastoid pain, nasal discharge or nasal congestion Card: Denies: chest pain, edema, dyspnea on exertion or orthopnea Resp: Denies: dyspnea, productive cough or non-productive cough GI: Denies: abdominal pain, nausea, vomiting, hematemesis, coffee ground emes is, diarrhea, constipation, bloating, hematochezia or melena : Denies: flank pain, difficulty voiding, dysuria, urinary frequency or urinary urgency Skin/Breast: Denies: rash or pruritus Psych: Reports: anxiety, paranoia, difficulty concentrating, visual hallucinations and auditory hallucinations [facility] ED PFSH: Medical History Cannabis dependence, uncomplicated Generalized anxiety disorder Major depressive disorder, recurrent, moderate Post-traumatic stress disorder, chronic Psychiatric care Surgical menopause Surgical History H/O: hysterectomy (07/05/13) Rosanna ZABALA urethral plication. Dr. Ruano at [facility] [place], [place]. Ovaries spared. History of dilation and curettage (08/17/11) Treatment of miscarriage. Dr. Ruano at [facility] [place] Hx of tubal ligation (08/26/12) tubal ligation. Dr. Yousif at [facility] in [place], [place]. S/P bilateral salpingo-oophorectomy (10/16/20) Laparoscopic. Dx: Chronic pelvic pain. Performed by Dr. Ruano at [facility] in [place], [place]. Status post left foot surgery (~02/2009) Reconstruction from an accident/fracture Family History Mother Diabetes Heart disease Stroke Hypertension Hyperlipidemia Family/Other Heart disease Maternal aunt Stroke Maternal and paternal aunt Breast cancer Maternal and paternal aunts and uncles. Diagnosed in 40s Ovarian cancer, Onset Age: 52 Maternal aunt Uterine cancer maternal aunt Colon cancer maternal uncle, age at diagnosis unknown Cancer Maternal and paternal uncle--brain cancer Father Hypertension Heart disease Hyperlipidemia Other Thyroid condition Social History Smoking and tobacco status: former smoker Quit status (tobacco): has quit using tobacco Year quit tobacco: 2002 Second hand smoke exposure: Yes (Occasionally.) Smoking risk assessment/counseling performed?: No Alcohol intake: current Alcohol intake frequency: holidays/special occasions only Alcohol type: other Desire information about alcohol rehabilitation?: No Counseling given: No Desire information about substance/drug rehabilitation?: No Counseling given: No Physical Exam Const: GENERAL APPEARANCE: cooperative and comfortable ORIENTATION/CONSCIOUSNESS: Yes awake, Yes oriented to person, Yes oriented to place and Yes oriented to time HENMT: COMMON NORMALS: normocephalic, atraumatic and hearing grossly normal bilaterally HEAD & SCALP: normocephalic and atraumatic Resp: COMMON NORMALS: normal respiratory effort, No retractions, No use of accessory muscles and clear to auscultation bilaterally AUSCULTATION: clear to auscultation bilaterally Cardio: COMMON NORMALS: regular rate, regular rhythm and No murmurs present (Cardio) RATE: regular rate RHYTHM: regular rhythm GI: COMMON NORMALS: Soft to palpation and No hepatosplenomegaly present A USCULTATION: Yes normoactive bowel sounds PALPATION: Yes Soft to palpation, No Tenderness to palpation present (GI), No Guarding due to palpation present (GI) and Yes No hepatosplenomegaly present Extremity: COMMON NORMALS: normal to inspection, capillary refill normal, no clubbing, cyanosis or edema, no calf tenderness and no pedal edema Neuro: SENSORIUM/ORIENTATION: Yes oriented to person, Yes oriented to place and Yes oriented to time Skin: COMMON NORMALS: no rashes or lesions noted GENERAL SKIN EXAM: no rashes or lesions noted Course Vital Signs: Vital signs: Vital Signs Temperature 97.6 F 05/27/22 13:07 Pulse Rate 64 05/27/22 13:07 Respiratory Rate 16 05/27/22 13:07 Blood Pressure 149/91 05/27/22 13:07 Pulse Oximetry 99 05/27/22 13:07 Oxygen Delivery Me thod 05/27/22 13:07 MDM - Psych Medical Decision Making Auditory and visual hallucinations with thoughts of harming others particularly her children. She has had several of these episodes which she related to me. Patient will be admitted to [facility] on a 96-hour hold discussed Dr. wiggins he agrees orders written Medical Records I reviewed the patient's medical records. Lab Data I reviewed the patient's lab results. : 05/27/22 14:00 05/27/22 14:00 Laboratory Results WBC 6.7 10^3/uL (4.0-10.0) 05/27/22 14:00 RBC 4.63 10^6/uL (4.1-5.3) 05/27/22 14:00 Hgb 14.3 g/dL (11.5-15.3) 05/27/22 14:00 Hct 43.8 % (37.0-47.0) 05/27/22 14:00 MCV 94.6 fl (81-99) 05/27/22 14:00 MCH 30.9 pg (28.0-34.0) 05/27/22 14:00 MCHC 32.6 g/dL (30.0-36.0) 05/27/22 14:00 RDW 11.9 % (12.1-15.1) L 05/27/22 14:00 Plt Count 240 10^3/cmm (130-400) 05/27/22 14:00 MPV 9.7 fL (7.4-10.4) 05/27/22 14:00 Neut % (Auto) 56.0 % 05/27/22 14:00 Lymph % (Auto) 32.4 % 05/27/22 14:00 [place] % (Auto) 7.9 % 05/27/22 14:00 Eos % (Auto) 2.8 % 05/27/22 14:00 Baso % (Auto) 0.6 % 05/27/22 14:00 Neut # (Auto) 3.74 10^3/uL (1.8-7.7) 05/27/22 14:00 Lymph # (Auto) 2.2 10^3/uL (0.8-4.8) 05/27/22 14:00 [place] # (Auto) 0.5 10^3/uL (0.2-0.9) 05/27/22 14:00 Eos # (Auto) 0.2 10^3/uL (0.0-0.8) 05/27/22 14:00 Baso # (Auto) 0.0 10^3/uL (0.0-0.1) 05/27/22 14:00 Nucleated RBC % (auto) 0 % 05/27/22 14:00 Nucleated RBCs # 0.0 /100WBC 05/27/22 14:00 Sodium 141 mmol/L (136-145) 05/27/22 14:00 Potassium 3.7 mmol/L (3.5-5.1) 05/27/22 14:00 Chloride 105 mmol/L (98-107) 05/27/22 14:00 Carbon Dioxide 25 mmol/L (22-29) 05/27/22 14:00 Anion Gap 14.7 (5-19) 05/27/22 14:00 BUN 11 mg/dL (6-20) 05/27/22 14:00 Creatinine 0.8 mg/dL (0.5-0.9) 05/27/22 14:00 GFR Calculation 80.3 mL/min (90-130) L 05/27/22 14:00 Glucose 94 mg/dL (65-115) 05/27/22 14:00 Calculated Osmolality 291 mOsm/kg (285-295) 05/27/22 14:00 Calcium 9.9 mg/dL (8.5-10.5) 05/27/22 14:00 Total Bilirubin 0.3 mg/dL (0.15-1.2) 05/27/22 14:00 AST 13 U/L (0-32) 05/27/22 14:00 ALT 8 U/L (0-33) 05/27/22 14:00 Alkaline Phosphatase 89 U/L (35-105) 05/27/22 14:00 Total Protein 7.0 g/dL (6.6-8.7) 05/27/22 14:00 Albumin 4.3 g/dL (3.5-5.2) 05/27/22 14:00 Globulin 2.7 g/dL (1.3-4.6) 05/27/22 14:00 Urine Color Yellow (Yellow) 05/27/22 13:37 Urine Appearance Clear (CLEAR) 05/27/22 13:37 Urine pH 6 (5-7) 05/27/22 13:37 Ur Specific [place] 1.020 (1.005-1.030) 05/27/22 13:37 Urine Protein Neg (Negative) 05/27/22 13:37 Urine Glucose (UA) Norm (Normal) 05/27/22 13:37 Urine Ketones Negative (Negative) 05/27/22 13:37 Urine Blood Neg (Negative) 05/27/22 13:37 Urine Nitrate Negative (Negative) 05/27/22 13:37 Urine Bilirubin Neg (Negative) 05/27/22 13:37 Urine Urobilinogen Norm mg/dL (Negative) 05/27/22 13:37 Ur Leukocyte Esterase Negative (Negative) 05/27/22 13:37 Salicylates < 0.3 mg/dL (3-10) L 05/27/22 14:00 Acetaminophen < 5.0 ug/mL (10-30) L 05/27/22 14:00 Ethyl Alcohol < 10 mg/dL (0-10) 05/27/22 14:00 Discharge Plan Discharge Patient Disposition: Admitted As Inpatient Admit Provider: Garrett Nevarez Clinical Impression: Acute psychosis, Suicidal ideation, Acute paranoia, Homicidal ideation Condition: Stable Coding Level of Care Code ED Veneer Press Operator for Chg Fwd Exam Detailed
[2022-05-27 16:12] VITALS: BP 128/84; PULSE 62; RESP 15; O2SAT 98
[2022-05-27 17:02] VITALS: BP 153/93; PULSE 65; RESP 18; TEMP 36.6; O2SAT 99
--- NOTE | 2022-05-27 17:45 | PC.NURSE ---
Patient states she came into the ER because she wasn't feeling like herself and felt like someone else was controlling her. She was thinking of hurting herself and would think her kids didn't look like her kids. She stated she had looked at her kids before and wonder what it would be like to throw them out of the car. She acknowledged that she knew this wasn't right and became afraid of what she might do. Patient states she has always felt like this since she was a kid and that she feels it has worsened due to her and her losing their jobs. Patient admits to her hearing voices in her head that are loud and in [employer] once she believed they were after her. She also endorses V[facility], seeing shadows. She says she used to bite and punch herself as a kid and after her mom she cut her wrist approximately 13 times in an attempt to redirect the pain from the inside to the outside. Patient calm and cooperative upon assessment.
[2022-05-27] MEDS: OLANZapine 5 mg ODT PO (19:31)
[2022-05-27 19:36] LABS: Amphetamines Screen Urine Negative (Negative); Barbiturates Screen Urine Negative (Negative); Benzodiazepines Screen Urine Negative (Negative); Cocaine Screen Urine Negative (Negative); Opiate Screen Urine Negative (Negative); PCP Screen Urine Negative (Negative); THC Screen Urine Positive (Negative)
[2022-05-27 19:44] VITALS: BP 133/83; PULSE 70; RESP 19; TEMP 36.4; O2SAT 96
[2022-05-27] MEDS: quetiapine 25 mg Tablet 50 MG PO (21:15)
[2022-05-27] MEDS: trazodone 50 mg Tablet PO (21:16)
[2022-05-28 06:00] VITALS: RESP 18
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
[2022-05-28] MEDS: fluoxetine 20 mg Capsule PO (08:45)
--- NOTE | 2022-05-28 08:48 | PC.NURSE ---
SHIFT ASSESSMENT C/O SI/HI...NO PLAN ON HOW TO HURT HERSELF OR ANYBODY ELSE, DENIES WANTING TO HURT ANYONE IN PARTICULAR. WHEN ASKED IF SUICIDAL OR HOMICIDAL, PT STATED A LITTLE BIT OFFERED PRN ANXIETY MED, PT DENIED WANTING ANY MEDICINE FOR ANXIETY CURRENTLY. STATED SHE WASN'T HAVING ANY HALLUCINATIONS CURRENTLY. DID CONTRACT FOR SAFETY, STAFF EDUCATED PATIENT TO COME SPEAK TO STAFF IF FEELING WORSENED. PT VERBALIZED UNDERSTANDING.
[2022-05-28 14:00] VITALS: BP 128/84; PULSE 81; RESP 20; TEMP 36.9; O2SAT 98
[2022-05-28] MEDS: acetaminophen 325 mg Tablet 650 MG PO (16:44)
[2022-05-28] MEDS: quetiapine 100 mg Tablet PO (21:04)
[2022-05-28 22:00] VITALS: BP 119/81; PULSE 54; RESP 18; TEMP 36.7; O2SAT 97
[2022-05-29 06:00] VITALS: BP 102/65; PULSE 63; RESP 18; TEMP 36.6; O2SAT 95
[2022-05-29] MEDS: fluoxetine 20 mg Capsule PO (08:22)
--- NOTE | 2022-05-29 09:34 | PC.NURSE ---
shift assessment denies SI/HI/AVH currently, mood is flat but cooperative with care. asking about when physician will be in today, states she wants to be re-evaluated assured that she would be speaking with psychiatrist today. asked for [facility] phone number, provided by staff.
[2022-05-29 14:00] VITALS: BP 137/97; PULSE 62; RESP 16; TEMP 36.7; O2SAT 95
[2022-05-29] MEDS: acetaminophen 325 mg Tablet 650 MG PO (14:49)
--- NOTE | 2022-05-29 17:56 | P.NPUPN_ITS ---
Subjective NPU Subjective: Patient presented today reporting that she is admitted due to challenges in her life we discussed normal affect. She endorsed that her family lives precariously from a financial sense with her and her doing odd jobs secondary to her having separation anxiety from him. She reports that they have four children home and that they recently had some animals among other stressors. She endorsed wanting to have a reevaluation to see if she could be discharged sooner than her 96 hour hold. We discussed that every day with reevaluation and that we will work with social work team to get appropriate resources after discharge and identify the soonest she can be safely discharged. Mental Status Exam MSE Comments: This is an obese white female in hospital scrubs with adequate grooming and eye contact with short magenta colored hair with a ring on her chin and nose ring and a tattoo on her shaved head and on her arms. No abnormal movements except for mild psychomotor retardation. Cooperative with exam in mild distress. Speech was slightly decreased rate and volume. Mood described as getting better, affect slightly subdued. Thought process appeared organized. Thought content: Patient denied suicidal or homicidal ideation, there are no delusions reported or noted, she denied current auditory attention concentration were intact and memory appeared reliable but none were formally tested. She alert and oriented x3. Insight appears limited, judgment fair, and her impulse control appeared limited as well. Vitals/I&O/Wt Last Vital Signs Temp 97.6 F 05/29/22 22:00 Pulse 62 05/29/22 22:00 Resp 18 05/29/22 22:00 BP 118/83 05/29/22 22:00 Pulse Ox 97 05/29/22 22:00 O2 Del Method 05/29/22 22:00 Data NPU : 05/27/22 14:00 05/27/22 14:00 A&P Assessment and plan (1) Major depressive disorder: (2) Suicidal ideation: (3) PTSD (post-traumatic stress disorder): (4) Homicidal ideation: (5) Acute psychosis: Plan Samra is a 37-year-old white female with a history of PTSD complaining of dissociation, derealization, depressed mood, and exacerbation of PTSD symptoms along with suicidal and homicidal ideation and auditory hallucinations. 1.? Restarted Prozac 40mg daily, started seroquel 50mg at night to target psychosis and ptsd related symptoms. 2.? Encourage individual, group and milieu therapy 3.? Continue q-15 minute check for safety 4.? Recommend sober living treatment at the highest level of care to which the patient is willing to commit. 5. Will attempt to gather collateral information. Involuntary Hold Information 96 Hour Hold: 96 Hour Involuntary Admission: Yes 96 Hour Hold Ending Date: 06/02/22 96 Hour Hold Ending Time: 16:30 Attestations NPU Medical Necessity Statement*: Inpatient hospitalization is medically necessary and the clinically appropriate intervention at this time. We will monitor medications and make changes as indicated. Likely length of stay 2-5 days. Coding Level of Care Code Acute Plastic Bubble Packer for Rashaun Cedillo Diagnoses Major depressive disorder F32.9 Suicidal ideation R45.851 PTSD (post-traumatic stress disorder) F43.10 Homicidal ideation R45.850 Acute psychosis F23
[2022-05-29] MEDS: quetiapine 100 mg Tablet PO (20:00)
[2022-05-29 20:51] VITALS: BP 118/83; PULSE 62; RESP 18; TEMP 36.4; O2SAT 97
[2022-05-29 22:00] VITALS: BP 118/83; PULSE 62; RESP 18; TEMP 36.4; O2SAT 97
[2022-05-30 06:00] VITALS: RESP 18
[2022-05-30] MEDS: ibuprofen 800 mg tablet PO (08:46)
[2022-05-30] MEDS: fluoxetine 20 mg Capsule PO (08:47)
[2022-05-30] MEDS: acetaminophen 325 mg Tablet 650 MG PO ×2 (08:47→12:04)
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
[2022-05-30 13:39] VITALS: RESP 18
[2022-05-30 13:47] VITALS: RESP 18
== END 2022-05-30 13:51 | disposition home or self-care (01) | DRG 885 ==
LOC: ER 14:55 → NP 16:02
PROVIDERS: Admitting Provider Psychiatry & Neurology Psychiatry; Emergency Provider Family Medicine; PCP Family Medicine; Visit Provider Psychiatry & Neurology Psychiatry
DX: F23 Brief psychotic disorder (principal); R45.851 Suicidal ideations; F32.9 Major depressive disorder, single episode, unspecified; F43.12 Post-traumatic stress disorder, chronic; R45.850 Homicidal ideations; G43.909 Migraine, unspecified, not intractable, without status migrainosus; Z62.810 Personal history of physical and sexual abuse in childhood; Z87.891 Personal history of nicotine dependence; Z91.52 Personal history of nonsuicidal self-harm; Z81.8 Family history of other mental and behavioral disorders; Z90.710 Acquired absence of both cervix and uterus; Z90.722 Acquired absence of ovaries, bilateral
CPT/HCPCS: 80053; 80306; 80307; 81003; 85025; 97150; 97165; 99285

== ENCOUNTER → 2022-09-03 08:58 | Outpatient (BNVA) | payer MEDICAID, SELFPAY | PROVIDERS: PCP Family Medicine; Visit Provider Nurse Practitioner | DX: Z79.899 Other long term (current) drug therapy (principal) | CPT/HCPCS: 80061; 83036 ==

== ENCOUNTER → 2022-11-10 10:00 | Outpatient (BNVA) | payer MEDICAID, SELFPAY | PROVIDERS: PCP Family Medicine; Visit Provider Family Medicine | DX: D17.9 Benign lipomatous neoplasm, unspecified (principal) | CPT/HCPCS: 88307 ==

== ENCOUNTER → 2022-12-08 11:55 | Outpatient (BNVA) | payer MEDICAID, SELFPAY ==
[2022-11-19 11:13] VITALS: BP 137/77; BMI 30.8
== END ==
PROVIDERS: PCP Family Medicine; Visit Provider Family Medicine
DX: M35.3 Polymyalgia rheumatica (principal); R27.0 Ataxia, unspecified
CPT/HCPCS: 80053; 85025; 85651; 86038; 86140; 86431

== ENCOUNTER → 2023-02-23 13:36 | Outpatient (BNVA) | payer OTHER, SELFPAY ==
[2022-11-19 11:13] VITALS: BP 137/77; BMI 30.8
== END ==
PROVIDERS: PCP Family Medicine; Visit Provider Nurse Practitioner
DX: F41.1 Generalized anxiety disorder (principal); Z79.899 Other long term (current) drug therapy
CPT/HCPCS: 80061; 83036